=== PATIENT | male | born 1960 | race Caucasian/White ===

== ENCOUNTER → 2017-09-10 | Outpatient (CLI) | payer SELFPAY ==
--- NOTE | 2017-09-10 17:25 | CT ---
HISTORY: Screening. Cardiac CTA with calcium scoring Technique: Multiple axial images of the chest were obtained on a [address] from the aortic arch to the base of the heart with retrospective cardiac gating. Noncontrast evaluation of th e heart was performed for calcium scoring with prospective gating. 3D reconstructions and vessel anal ysis were performed on a vital imaging workstation. Dose reduction techniques including Automated Ex posure Control (AEC) and adjustment of mA and kV were utilized. Findings: A total calcium score of 22 is observed. The score results in minimal likelihood of coronary events given the age and sex matched cohort analysis. Minimal coronary artery calcifications were seen within all the coronary arteries. This was most prev alent within the left circumflex coronary artery. Extracardiac findings: No pathologically enlarged lymphadenopathy can be observed. The aortic arch is unremarkable in its a ppearance with normal vascular configuration. No significant pericardial effusion can be identified. The visualized portions of the lung parenchyma are unremarkable. No lytic or blastic lesions can b e identified within the visualized bony thorax. The visualized portions of the abdomen demonstrate n ormal perfusion patterns of the spleen and liver. IMPRESSION: Total cardiac calcium score of 22 with a minimal likelihood of coronary artery events. Reported By:
== END ==
LOC: RAD 11:15
PROVIDERS: ATTEND Internal Medicine
DX: Z13.6 Encounter for screening for cardiovascular disorders (principal)